=== PATIENT | male | born 1965 | race African-American/Black ===

== ENCOUNTER 2016-12-25 17:52 | Emergency (ER) | payer MEDICAID ==
[~2016-12-25] VITALS: Ht 180.3 cm; Wt 103.0 kg
[2016-12-25] MEDS ORDERED: Methocarbamol 750mg tab ORAL ONE (18:30)
[2016-12-25] MEDS ORDERED: ROBAXIN-750750 MG PO (18:33)
[2016-12-25] MEDS ORDERED: IBUPROFEN600 MG ORAL (18:33)
[2016-12-25 18:41] VITALS: BP 132/81
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
== END 2016-12-25 18:44 | disposition home or self-care (01) ==
LOC: EMR 18:35
DX: S39.012A Strain of muscle, fascia and tendon of lower back, initial encounter (principal); V43.62XA Car passenger injured in collision with other type car in traffic accident, initial encounter; Y92.89 Other specified places as the place of occurrence of the external cause; Z88.0 Allergy status to penicillin
CPT/HCPCS: 99284